=== PATIENT | female | born 1990 | race African-American/Black ===

== ENCOUNTER → 2016-05-24 | Day surgery (SDC) | payer OTHER ==
[~2016-05-24] VITALS: Ht 167.6 cm; Wt 81.6 kg
[~2016-05-24] MED LIST: HYDROMORPHONE HC2 MG PO; MOTRIN 800MG T800 MG PO
--- NOTE | 2016-05-24 14:31 | Operative Report ---
Operative/Inv Procedure Report Surgery Date: 05/24/16 Name of Procedure: D&C hysteroscopy Pre-Operative Diagnosis: Metromenorrhagia Post-Operative Diagnosis: Same Estimated Blood Loss: less than 50ml Surgeon/Cabin Worker: NINO DONG MD Anesthesia: moderate sedation Operative/Procedure Note Note: Patient was taken to the operating room placed in dorsal supine position. After adequate anesthesia, patient was prepped and draped for surgery. Examination under anesthesia was performed. CO2 tenaculum was placed on the anterior lip of the cervix gentle downward traction was used. The cervix was dilated 29 Hegar to left insertion of the hysteroscope. Under direct visualization to hysteroscopy was performed using gas hysteroscope was removed and endocervical curettage was performed. And endometrial curettage was performed. All instruments removed from the vagina. The counts were correct the patient was awakened from anesthesia. And transported to recovery room awake and alert.
== END ==
LOC: STS 01:07
DX: N92.1 Excessive and frequent menstruation with irregular cycle (principal)
CPT/HCPCS: 81025; 88305; J2250

== ENCOUNTER 2017-05-16 10:23 | Inpatient (IN) | payer OTHER ==
[~2017-05-16] VITALS: Ht 167.6 cm; Wt 90.7 kg
[~2017-05-16 10:23] MED LIST changes: +PRENATAL ONE D1 EACH PO
[2017-05-16 11:01] LABS: ABSOLUTE BASOPHIL COUNT 0 /CUMM (0.0-0.2); ABSOLUTE EOSINOPHIL COUNT 0 /CUMM (0.0-0.7); ABSOLUTE GRANULOCYTE CT 6.5 /CUMM (1.4-6.5); ABSOLUTE LYMPH COUNT 1.1 /CUMM (1.2-3.4); ABSOLUTE MONOCYTE COUNT 0.4 /CUMM (0.10-0.60); BASOPHIL % 0 % (0.0-2.0); EOSINOPHIL % 0.4 % (0-5); GRANULOCYTE % 80.7 % (42.2-75.2); HEMATOCRIT 27.3 % (37-47); MEAN CORPUSCULAR HGB 24.6 PG (27.0-31.0); MEAN CORPUSCULAR HGB CONC 32.1 G/DL (33.0-37.0); MEAN CORPUSCULAR VOLUME 76.7 FL (81.0-99.0); MEAN PLATELET VOLUME 7.7 FL (7.4-10.4); PLATELET COUNT 169 /CUMM (130-400); RBC DISTRIBUTION WIDTH 15.8 % (11.5-14.5); RED BLOOD CELL CT 3.56 /CUMM (4.20-5.40); WHITE BLOOD CELL COUNT 8.1 /CUMM (4.8-10.8)
[2017-05-16 11:47] VITALS: BP 99/55
--- NOTE | 2017-05-16 13:14 | History & Physical Pre-Op ---
General Information and HPI MD Statement: I have seen and personally examined SHELIA JOHNSON and documented this H&P. The patient is a 26 year old F who presented with a patient stated chief complaint of severe oligohydramnios and pain. Patient had a routine ultrasound my office it does not demonstrating fluid she denies rupture of membranes she has a negative and the sure patient had eaten this morning at 7:00 this is an emergency []. History of Present Illness: 25-year-old 3 para 2002 presents at 37 weeks with no fluid on for a repeat section patient has been noncompliant with her care she has a crit of 8 on and 29 and platelets of 169 I she has been type and cross matched patient had a full breakfast this is an emergency Allergies/Medications Allergies: Coded Allergies: No Known Allergies (05/18/16) Home Med list Vit No.129/Iron/FA ( One Daily Tablet) 27 MG IRON-800 MCG TABLET 1 TAB PO DAILY Past History Surgical History Pertinent Surgical History: N Past Family/Social History Psychosocial History Smoking Status: Never Smoked Review of Systems Review of Systems: 13 point review of systems as stated in the HPI patient denies headache edema Exam & Diagnostic Data Last 24 Hrs of Vital Signs/I&O Vital Signs Date Time Temp Pulse Resp B/P B/P Pulse O2 O2 Flow FiO2 Mean Ox Delivery Rate 05/16 1147 99/55 Intake & Output 05/16 1600 05/16 0800 05/16 0000 Intake Total Output Total Balance Patient 200 lb Weight Physical Exam: Thin white female in no apparent distress HEENT anicteric Lungs clear Abdomen soft estimated weight 3600 g Extremities negative edema Pelvic is long and closed vertex Assessment/Plan As Ranked By This Provider Problem List: 1.
--- NOTE | 2017-05-16 15:33 | PN- Post Delivery/GYN ---
Subjective Subjective: Patient passed a large clot Objective Last 24 Hrs of Vital Signs/I&O Vital Signs Date Time Temp Pulse Resp B/P B/P Pulse O2 O2 Flow FiO2 Mean Ox Delivery Rate 05/16 1147 99/55 Intake & Output 05/16 1600 05/16 0800 05/16 0000 Intake Total Output Total Balance Patient 200 lb Weight Physical Exam: Thin white female holding her baby Abdomen soft fundus firm nontender cervix lower uterine segment ballooned out Proxima 2200 mL's Assessment/Plan Assessment/Plan Assessment hemorrhage Plan 2 more units of packed red blood cells check CB C Cytotec Hemabate Methergine
[2017-05-16 15:59] LABS: ABSOLUTE BASOPHIL COUNT 0 /CUMM (0.0-0.2); ABSOLUTE EOSINOPHIL COUNT 0 /CUMM (0.0-0.7); ABSOLUTE GRANULOCYTE CT 6.9 /CUMM (1.4-6.5); ABSOLUTE LYMPH COUNT 1.4 /CUMM (1.2-3.4); ABSOLUTE MONOCYTE COUNT 0.5 /CUMM (0.10-0.60); BASOPHIL % 0.4 % (0.0-2.0); EOSINOPHIL % 0.5 % (0-5); GRANULOCYTE % 77.8 % (42.2-75.2); HEMATOCRIT 27.3 % (37-47); MEAN CORPUSCULAR HGB 25.6 PG (27.0-31.0); MEAN CORPUSCULAR HGB CONC 32.9 G/DL (33.0-37.0); MEAN CORPUSCULAR VOLUME 77.9 FL (81.0-99.0); PLATELET COUNT 180 /CUMM (130-400); RBC DISTRIBUTION WIDTH 16.7 % (11.5-14.5); WHITE BLOOD CELL COUNT 8.8 /CUMM (4.8-10.8)
[2017-05-17 04:33] LABS: ABSOLUTE BASOPHIL COUNT 0 /CUMM (0.0-0.2); ABSOLUTE EOSINOPHIL COUNT 0.1 /CUMM (0.0-0.7); ABSOLUTE GRANULOCYTE CT 9.1 /CUMM (1.4-6.5); ABSOLUTE LYMPH COUNT 1.1 /CUMM (1.2-3.4); ABSOLUTE MONOCYTE COUNT 0.8 /CUMM (0.10-0.60); BASOPHIL % 0.3 % (0.0-2.0); EOSINOPHIL % 0.5 % (0-5); HEMATOCRIT 28.5 % (37-47); MEAN CORPUSCULAR HGB 26.1 PG (27.0-31.0); MEAN CORPUSCULAR HGB CONC 33.1 G/DL (33.0-37.0); MEAN CORPUSCULAR VOLUME 78.8 FL (81.0-99.0); MEAN PLATELET VOLUME 7.7 FL (7.4-10.4); PLATELET COUNT 149 /CUMM (130-400); RBC DISTRIBUTION WIDTH 16.8 % (11.5-14.5); RED BLOOD CELL CT 3.62 /CUMM (4.20-5.40); WHITE BLOOD CELL COUNT 11.1 /CUMM (4.8-10.8)
--- NOTE | 2017-05-17 09:33 | PN- Post Delivery/GYN ---
Subjective Subjective: NO COMPLAINTS Objective Last 24 Hrs of Vital Signs/I&O Vital Signs Date Time Temp Pulse Resp B/P B/P Pulse O2 O2 Flow FiO2 Mean Ox Delivery Rate 05/16 1147 99/55 Physical Exam: PE THIN BF IN NAD ABD SOFT NT FUNDUS FIRM NT INCISIONCDI Assessment/Plan Assessment/Plan ASSESS S/P C/SS/P HEMMO RAGE PLAN CONT PPC
--- NOTE | 2017-05-17 12:42 | Operative Report ---
Operative/Inv Procedure Report Surgery Date: 05/16/17 Name of Procedure: Repeat low flap transverse section via Pfannenstiel skin incision lysis of adhesions repair of left uterine artery laceration curettage of fundus Pre-Operative Diagnosis: Severe oligohydramnios term previous section Post-Operative Diagnosis: Same uterine artery laceration footling breech presentation Estimated Blood Loss: 300 Surgeon/Senior Portfolio Manager: Lester TAYLOR,Areli Agarwal and Dr. Ammon Monroe Anesthesia: block Operative/Procedure Note Note: C do not patient states the operating room placed in supine position after adequate skin testing for spinal narcotic anesthesia and timeout was performed the abdomen had been prepped and draped in sterile fashion through an old Pfannenstiel skin incision skin was cut was carried down to rectus fascia which was cut in curvilinear fashion either direction using curved males dissected bluntly as well as sharply off the rectus sheath high into the abdomen the rectus sheath was the peritoneum and the rectus sheath had been adhered together the low blade the Kimberly was placed and lower in the incision in the lower uterine segment the uterus was nicked a bladder flap was developed in the lower uterine segment the uterus was dissected bluntly as well as sharply after had been entered with the back of knife the infant was delivered by complete breech extraction the cord was doubly clamped and cut handed to branch director was waiting delivering to aid in resuscitation the placenta was delivered manually noted to be intact was wiped clean with 2 wet dry laps as well as a Ismael curette to ensure Apus free of adherent membranes intravenous Pitocin and intramyometrial Pitocin was used to aid in uterine contractility which was apparent uterus was oversewn running locking suture I was indicated interrupted [id number] the left uterine artery was lacerated and was suture ligated times for irritates hemostasis was apparent the uterine artery had been externalized was no longer bleeding uses turned to abdominal cavity found to be hemostatic well as firm the peritoneum was reprocessed a 0 far shows reapproximated to continue sutures 1 Subutex tissue was Bovie coagulated skin was approximated [place] in the case counts correct urine was clear bleeding was minimal patient was transported recovery room awake and alert counts correct Findings: Viable female footling breech oligohydramnios normal tubes and ovaries bilaterally thin lower uterine segment
--- NOTE | 2017-05-18 10:54 | PN- Post Delivery/GYN ---
Subjective Subjective: NO BLEEDING Objective Last 24 Hrs of Vital Signs/I&O PER CHART Physical Exam: PE THIN BF IN NAD ABD BS SOFT NT INCISION CDI EXT -EDEMA -HOMANS Assessment/Plan Assessment/Plan ASSESS S/P C/S S/P POSTPARTRUM HEMMORHAGE PLAN D/C IN AM
[2017-05-19] MEDS ORDERED: IBUPROFEN800 M1 PO (11:12)
[2017-05-19] MEDS ORDERED: PERCOCET 5-3251 EACH PO (11:12)
== END 2017-05-19 12:00 | DRG 540 ==
LOC: CBCO 10:23 → GNO 10:38
PROVIDERS: Specialist
PROC: 10D00Z1 Extraction of Products of Conception, Low, Open Approach (ICD-10-PCS; principal; 2017-05-16)
PROC: 0UQ90ZZ Repair Uterus, Open Approach (ICD-10-PCS; principal; 2017-05-16)
PROC: 30233N1 Transfusion of Nonautologous Red Blood Cells into Peripheral Vein, Percutaneous Approach (ICD-10-PCS; 2017-05-16)
DX: O41.03X0 Oligohydramnios, third trimester, not applicable or unspecified (principal); O32.8XX0 Maternal care for other malpresentation of fetus, not applicable or unspecified; O71.81 Laceration of uterus, not elsewhere classified; O72.1 Other immediate postpartum hemorrhage; Z3A.37 37 weeks gestation of pregnancy; Z37.0 Single live birth
CPT/HCPCS: GNOS; 81001; 86920; 87086; 88307; J0131; J0690; J1650; J1885; J2210; J7120; P9016; Q2036